=== PATIENT | male | born 1985 | race Caucasian/White ===

== ENCOUNTER 2018-10-03 15:48 | Emergency (ER) | payer OTHER ==
--- NOTE | 2018-10-03 15:52 | ERPHSYRPT ---
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 pt does not recall specifically swallowing his toothpick. however, he could not find it and pt was having some painful swallowing. occurred last pm. pt has eaten and drank fluid several times since he could not find the plastic toothpick Timing/Duration: yesterday Severity: mild Modifying Factors: Improves With: other (mild tenderness mid neck level) Associated Symptoms: No nausea, No vomiting, No abdominal pain, No shortness of breath Allergies/Adverse Reactions: cephalexin [From Keflex] Allergy (Verified 10/03/18 16:03) Home Medications: No Reportable Medications [No Reported Medications] 10/03/18 [History] - Review of Systems Constitutional: No Symptoms Eyes: No Symptoms Ears, Nose, & Throat: Painful Swallowing (very mild) Respiratory: No Symptoms Cardiac: No Symptoms Abdominal/Gastrointestinal: No Symptoms Genitourinary Symptoms: No Symptoms Musculoskeletal: No Symptoms Skin: No Symptoms Neurological: No Symptoms Psychological: No Symptoms Endocrine: No Symptoms Hematologic/Lymphatic: No Symptoms Immunological/Allergic: No Symptoms All Other Systems: Reviewed and Negative - Past Medical History Pertinent Past Medical History: No Neurological History: No Pertinent History ENT History: No Pertinent History Cardiac History: No Pertinent History Respiratory History: No Pertinent History Endocrine Medical History: No Pertinent History Musculoskeletal History: No Pertinent History GI Medical History: No Pertinent History History: No Pertinent History Psycho-Social History: No Pertinent History Male Reproductive Disorders: No Pertinent History - Past Surgical History Neuro Surgical History: No Pertinent History Cardiac: No Pertinent History Respiratory: No Pertinent History Gastrointestinal: No Pertinent History Genitourinary: No Pertinent History Musculoskeletal: No Pertinent History Male Surgical History: No Pertinent History - Nursing Vital Signs Nursing Vital Signs: Pain Scale Pain Intensity 4 - Physical Exam General Appearance: no apparent distress, alert, anxiety, other (pt handling his secretions, no breathing issues) Ears, Nose, Throat Exam: normal ENT inspection, moist mucous membranes Neck Exam: normal inspection, non-tender, supple, full range of motion, other ( no stridor) Respiratory Exam: normal breath sounds, lungs clear, No chest tenderness, No respiratory distress, No airway intact, No diminished breath sounds, No accessory muscle use, No wheezing, No stridor Cardiovascular Exam: regular rate/rhythm, normal heart sounds, normal peripheral pulses Rectal Exam: not done Back Exam: normal inspection, normal range of motion, No CVA tenderness, No vertebral tenderness Extremity Exam: normal inspection, normal range of motion, pelvis stable Neurologic Exam: alert, oriented x 3, cooperative, bookkeeping assistant II-XII nml as tested, normal mood/affect, nml cerebellar function, nml station & gait, sensation nml Skin Exam: normal color, warm, dry Lymphatic Exam: No adenopathy SpO2 Interpretation: normal O2 Delivery: Room Air Ordered Tests: Active Orders 24 hr Category Date Time Status KUB Routine Exams 10/03/18 16:16 Completed NECK SOFT TISSUE Stat Exams 10/03/18 16:06 Completed - Progress Progress: unchanged Progress Note: 10/03/18 17:04 negative soft tissue xray of neck for fb; negative kub for fb Counseled pt/family regarding: diagnosis, need for follow-up, rad results - Departure Departure Disposition: Home Clinical Impression: Swallowed foreign body Condition: Stable Critical Care Time: No Referrals: JOHAN SWAN [Primary Care Provider] - Additional Instructions: drink plenty of fluids. follow up with primary physician as needed
--- NOTE | 2018-10-03 16:17 | XRAY ---
Indication: Pain. Swallowed toothpick. Comparison: None AP/lateral soft tissue neck negative for radiopaque foreign body. Supra and infraglottic airway are patent. Cervical spine intact. Impression: Negative soft tissue neck.
--- NOTE | 2018-10-03 16:40 | XRAY ---
Indication: Swallowed toothpick. Comparison: None KUB nonacute and nonobstructed without radiopaque foreign body. Solid organs and osseous structures unremarkable. Impression: Negative KUB.
== END 2018-10-03 17:23 | disposition home or self-care (01) ==
LOC: ED 15:48
DX: T18.9XXA Foreign body of alimentary tract, part unspecified, initial encounter (principal)
CPT/HCPCS: 70360; 74018; 99283

== ENCOUNTER 2021-06-22 19:45 | Emergency (ER) | payer OTHER ==
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
[2021-06-22] MEDS ORDERED: Adacel Vial IM ONE ×2 (20:04→20:22)
[2021-06-22] MEDS ORDERED: NORCO 5/325 MG PO ONE (20:08)
[2021-06-22] MEDS ORDERED: NORCO 5/325 MG ONE (20:22)
[2021-06-22] MEDS ORDERED: BACIGUENT 30 GM ONE (20:28)
[2021-06-22 20:47] VITALS: BP 123/80; PULSE 84; O2SAT 97
[2021-06-22] MEDS ORDERED: BACIGUENT 30 GM TP SCH (22:00)
== END 2021-06-22 20:47 | disposition home or self-care (01) ==
LOC: ED 19:45
DX: T20.10XA Burn of first degree of head, face, and neck, unspecified site, initial encounter (principal); T22.112A Burn of first degree of left forearm, initial encounter; T22.111A Burn of first degree of right forearm, initial encounter; X08.8XXA Exposure to other specified smoke, fire and flames, initial encounter; Y93.E9 Activity, other interior property and clothing maintenance; Z72.0 Tobacco use; Z79.891 Long term (current) use of opiate analgesic
CPT/HCPCS: 90471; 90715; 99283; A9270-GY

== ENCOUNTER 2021-12-09 18:14 | Emergency (ER) | payer OTHER ==
[2021-12-09 18:24] VITALS: O2SAT 99
[2021-12-09] MEDS ORDERED: NORCO 5/325 MG PO ONE (18:41)
[2021-12-09] MEDS ORDERED: Augmentin 875-125 Tablet PO ONE (18:41)
[2021-12-09] MEDS ORDERED: TORAdol 30 mg Injection IM ONE (18:41)
--- NOTE | 2021-12-09 18:48 | ERPHSYRPT ---
- History of Present Illness Time Seen by Provider: 12/09/21 18:26 Source: patient Exam Limitations: no limitations Patient Subjective Stated Complaint: ear pain Triage Nursing Assessment: Patient ambulated back to ED and transferred self to bed. Patient A+O X.3 Patient's skin pink, warm and dry. Patient complains of right ear/jaw pain that started last night, but got better. Patient states the pain started this evening and has gotten worse. Patient states the last time this happened he had an infected tooth, but didn't have tooth pain. Patient denies pain to mouth. Physician History: 36-year-old male presented to the ER with chief complaint of right earache/jaw pain for 2 days with progressive worsening. Moderate to severe sharp pain, more with palpation right earlobe. Denies any ear discharge. Denies any jaw swelling. Does report having similar symptoms many years ago and had some tooth infection. No fever or chills reported. Timing/Duration: gradual onset, days (2) Severity: moderate ENT Location: ear (R), facial Prearrival Treatment: over the counter meds Associated Symptoms: ear pain (R), jaw pain, No hearing loss Allergies/Adverse Reactions: cephalexin [From Keflex] Allergy (Verified 12/09/21 18:18) Hx Tetanus, Diphtheria Vaccination/Date Given: No Hx Influenza Vaccination/Date Given: No Hx Pneumococcal Vaccination/Date Given: No Immunizations Up to Date: Yes Travel Risk - International Travel Have you traveled outside of the country in past 3 weeks: No - Coronavirus Screening Are you exhibiting any of the following symptoms?: No Close contact with a COVID-19 positive Pt in past 14-21 Days: No - Vaccine Status Have you recieved a Covid-19 vaccination: No - Review of Systems Constitutional: No Symptoms Eyes: No Symptoms Ears, Nose, & Throat: Ear Pain, No Ear Discharge Respiratory: No Symptoms Cardiac: No Symptoms Abdominal/Gastrointestinal: No Symptoms Musculoskeletal: No Symptoms Skin: No Symptoms Neurological: No Symptoms Hematologic/Lymphatic: No Symptoms Immunological/Allergic: No Symptoms - Past Medical History Pertinent Past Medical History: No Neurological History: No Pertinent History ENT History: No Pertinent History Cardiac History: No Pertinent History Respiratory History: No Pertinent History Endocrine Medical History: No Pertinent History Musculoskeletal History: No Pertinent History GI Medical History: No Pertinent History History: No Pertinent History Psycho-Social History: No Pertinent History Male Reproductive Disorders: No Pertinent History - Past Surgical History Past Surgical History: No Neuro Surgical History: No Pertinent History Cardiac: No Pertinent History Respiratory: No Pertinent History Gastrointestinal: No Pertinent History Genitourinary: No Pertinent History Musculoskeletal: No Pertinent History Male Surgical History: No Pertinent History - Social History Smoking Status: Current every day smoker How long have you smoked: 21 years Exposure to second hand smoke: Yes Drug Use: none Patient Lives Alone: No - Nursing Vital Signs Nursing Vital Signs: Initial Vital Signs Temperature 98.3 F 12/09/21 18:19 Pulse Rate 71 12/09/21 18:19 Respiratory Rate 18 12/09/21 18:19 Blood Pressure 129/68 12/09/21 18:19 O2 Sat by Pulse Oximetry 99 12/09/21 18:19 Pain Scale Pain Intensity 8 - Physical Exam General Appearance: no apparent distress, alert Eye Exam: bilateral eye: normal inspection, PERRL, EOMI Ear Exam: right ear: erythema, tenderness, left ear: TM normal, bilateral ear: auricle normal, canal normal Nasal Exam: normal inspection Throat Exam: normal, pharynx normal, No dental tenderness Neck Exam: normal inspection, supple, full range of motion, lymphadenopathy (R) Cardiovascular/Respiratory Exam: normal breath sounds, regular rate/rhythm Neurologic Exam: alert, oriented x 3, cooperative, breaker hand II-XII nml as tested, normal mood/affect Skin Exam: normal color SpO2 Interpretation: normal SpO2: 99 O2 Delivery: Room Air Ordered Tests: Medication Summary Discontinued Medications Generic Name Dose Route Start Last Admin Trade Name Kongq PRN Reason Stop Dose Admin Hydrocodone Bitart/Acetaminophen 2 tab 12/09/21 18:41 Hydrocodone/Apap 5/325 Mg Tablet PO 12/09/21 18:42 SENT HOME W/ PATIENT ONE Amoxicillin/Clavulanate Potassium 875 mg 12/09/21 18:41 Amox Tr/Potassium Clavulanate 875 Mg Tablet PO 12/09/21 18:42 STAT ONE Ketorolac Tromethamine 30 mg 12/09/21 18:41 Ketorolac Tromethamine 30 Mg/Ml Inj IM 12/09/21 18:42 STAT ONE - Progress Progress: pain not gone completely Progress Note: 12/09/21 18:47 Given Toradol for symptomatic relief. Has otitis media, started on Augmentin. Outpatient follow-up. Counseled pt/family regarding: diagnosis, need for follow-up - Departure Departure Disposition: Home Clinical Impression: Otitis media Condition: Stable Critical Care Time: No Referrals: DOCTOR,NO FAMILY [Primary Care Provider] - Follow up/PCP as directed BOBBY RACHEL MD [ACTIVE STAFF] - Follow up/PCP as directed (1-2 days for reevaluation ) Additional Instructions: Take Tylenol/ibuprofen as needed for pain. Follow-up with primary care for reevaluation. Return to ER for any worsening. Prescriptions: Ibuprofen 600 mg PO Q6HPRN PRN 10 Days #20 tablet PRN Reason: Pain Amox Tr/Potass Clav. 875 mg [Augmentin 875-125 Tablet] 875 mg PO BID #14 tablet
[2021-12-09] MEDS ORDERED: Augmentin 875-125 Tablet ONE (18:51)
[2021-12-09] MEDS ORDERED: NORCO 5/325 MG ONE (18:51)
[2021-12-09] MEDS ORDERED: TORAdol 30 mg Injection ONE (18:51)
[2021-12-09 19:23] VITALS: BP 113/66; PULSE 80
== END 2021-12-09 19:20 | disposition home or self-care (01) ==
LOC: ED 18:14
DX: H66.91 Otitis media, unspecified, right ear (principal); R68.84 Jaw pain; Z28.310 Unvaccinated for COVID-19
CPT/HCPCS: 96372; 99283; J1885; A9270-GY

== ENCOUNTER 2023-09-05 16:32 | Emergency (ER) | payer OTHER ==
[2023-09-05 16:41] VITALS: PULSE 89; RESP 20; TEMP 97.6
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
[2023-09-05] MEDS ORDERED: TORAdol 30 mg Injection ONE (16:43)
[2023-09-05] MEDS ORDERED: DECADRON 10MG INJ. ONE (16:44)
[2023-09-05] MEDS: DECADRON 10MG INJ. IM ONE (16:45)
[2023-09-05] MEDS: TORAdol 30 mg Injection IM ONE (16:46)
[2023-09-05 18:58] VITALS: O2SAT 98
[2023-09-05 19:00] VITALS: BP 111/50
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
== END 2023-09-05 19:03 | disposition home or self-care (01) ==
LOC: ED 16:32
DX: S39.012A Strain of muscle, fascia and tendon of lower back, initial encounter (principal); V68.0XXA Driver of heavy transport vehicle injured in noncollision transport accident in nontraffic accident, initial encounter; Y92.64 Mine or pit as the place of occurrence of the external cause; Y99.0 Civilian activity done for income or pay; Z72.0 Tobacco use
CPT/HCPCS: 72131; 96372; 99283; J1100; J1885